=== PATIENT | male | born 1945 | race Two or more races ===

== ENCOUNTER 2022-10-05 15:00 | Inpatient (IN) | payer MEDICARE ==
[~2022-10-05] VITALS: Ht 182.9 cm; Wt 77.1 kg
--- NOTE | 2022-10-05 15:20 | NUR ---
NEIL, REQUESTS PSYCH EVAL TO BE ABLE TO TRANSFER TO SNF
--- NOTE | 2022-10-05 15:46 | NUR ---
covid swab taken
--- NOTE | 2022-10-05 15:46 | NUR ---
lab at bed side
[2022-10-05 15:55] LABS: BASOPHILS % (AUTO) 0.6 % (0.0-2.0); EOSINOPHILS % (AUTO) 2.2 % (0.0-6.0); HEMATOCRIT 45 % (39-51); HEMOGLOBIN 14.7 g/dL (13.5-17.5); LYMPHOCYTES # (AUTO) 2.2 K/uL (0.8-4.8); LYMPHOCYTES % (AUTO) 27.3 % (20.0-44.0); MEAN CORPUSCULAR HGB CONC 33 g/dl (31.0-36.0); MEAN CORPUSCULAR VOLUME 86 fL (80-96); MONOCYTES # (AUTO) 0.8 K/uL (0.1-1.30); MONOCYTES % (AUTO) 10.4 % (2.0-12.0); NEUTROPHILS # (AUTO) 4.7 K/uL (1.8-8.9); NEUTROPHILS % (AUTO) 59.5 % (43.0-81.0); PLATELET COUNT (AUTO) 196 K/uL (150-450); RED BLOOD CELL COUNT(AUTO) 5.15 MIL/uL (4.5-6.0)
[2022-10-05 16:10] LABS: CALCIUM, SERUM 8.7 mg/dL (8.5-10.1); CARBON DIOXIDE 30 mmol/L (21-32); CHLORIDE 103 mmol/L (98-107); CREATININE 0.8 mg/dL (0.6-1.3); GLUCOSE 122 mg/dL (74-106); SODIUM SERUM 139 mmol/L (136-145); UREA NITROGEN, BLOOD 12 mg/dL (7-18)
[2022-10-05 16:14] LABS: ALANINE AMINOTRANSFERASE 9 U/L (12-78); ALBUMIN 3.5 g/dL (3.4-5.0); ALKALINE PHOSPHATASE 99 U/L (46-116); ASPARTATE AMINOTRANSFERASE 9 U/L (15-37); BILIRUBIN,DIRECT 0.2 mg/dL (0.0-0.2); BILIRUBIN,TOTAL 0.4 mg/dL (0.2-1.0); TOTAL PROTEIN, SERUM 6.7 g/dL (6.4-8.2)
--- NOTE | 2022-10-05 16:23 | NUR ---
urine sample obtained
[2022-10-05 16:24] LABS: ALCOHOL, BLOOD < 3 mg/dL (0-0)
[2022-10-05] MEDS ORDERED: TAMS-12 PO (16:34)
[2022-10-05] MEDS ORDERED: MAGN400O6 PO (16:34)
[2022-10-05] MEDS ORDERED: DIVA-78 PO (16:34)
[2022-10-05] MEDS ORDERED: THIA100T70 PO (16:34)
[2022-10-05] MEDS ORDERED: QUET25TA PO (16:34)
[2022-10-05] MEDS ORDERED: CHOL400T11 PO (16:34)
[2022-10-05] MEDS ORDERED: METF-440 PO (16:34)
[2022-10-05] MEDS ORDERED: ACET325T53 PO (16:34)
[2022-10-05] MEDS ORDERED: QUET50TA PO ×2 (16:34)
[2022-10-05] MEDS ORDERED: ESCI20TA PO (16:34)
[2022-10-05] MEDS ORDERED: SIMV-49 PO (16:34)
[2022-10-05] MEDS ORDERED: DONE10TA44 PO (16:34)
--- NOTE | 2022-10-05 17:33 | NUR ---
MOVE SHEET SUBMITTED.
[2022-10-05 17:57] LABS: BILIRUBIN,URINE NEGATIVE (NEGATIVE); COLOR,URINE YELLOW (YELLOW); LEUKOCYTE ESTERASE ,URINE 1+ (NEGATIVE); NITRITE, URINE NEGATIVE (NEGATIVE); PROTEIN,URINE NEGATIVE (NEGATIVE); UGLUCOSE NEGATIVE (NEGATIVE)
--- NOTE | 2022-10-05 18:08 | NUR ---
CALLED [facility] [phone]
[2022-10-05 18:35] LABS: BACTERIA,URINE 1+ /HPF (None Seen); CALCIUM OXALATE CRYSTALS,UR Few /HPF (None Seen); MUCUS,URINE Few /LPF (None Seen); SQUAMOUS EPITHELIAL CELL,UR 0-2 /HPF (None Seen)
--- NOTE | 2022-10-05 19:17 | NUR ---
[facility] - 220 BED B
--- NOTE | 2022-10-05 21:27 | NUR ---
wheeled patient via gurney accompanied by EMT in no distress. RN assigned at bedside to assume care.
[2022-10-05 21:30] VITALS: BP 145/60
[2022-10-05] MEDS ORDERED: ACETAMINOPHEN 325 MG TABLET PO PRN (21:30)
[2022-10-05] MEDS ORDERED: MAGNESIUM HYDROXIDE 30 ML UDC PO PRN (21:30)
[2022-10-05] MEDS ORDERED: CEFTRIAXONE 1 G in IV D5W 50 ML IV SCH (21:30)
[2022-10-05] MEDS: METFORMIN 500 MG TABLET PO SCH ×2 (21:30→22:46)
[2022-10-05] MEDS ORDERED: MAG HYDROX/AL HYDROX/SIMETH 30 ML UDC PO PRN (21:30)
--- NOTE | 2022-10-05 21:30 | NUR ---
GPS ADMISSION NOTE, RECEIVED PATIENT FROM HOME / [facility] PATIENT ARRIVED ON THIS UNIT AT 2130 VIA STRETCHER WITH 2 [employer]. PATIENT ADMITTED ON A 5150 HOLD FOR DTO AND GD. PER HOLD PATIENT WAS BROUGHT IN TO [facility] BY HIS SON DUE TO THIS PATIENT HAVING INCREASED CONFUSION AND AGITATION. PATIENT HAS BEEN AGGRESSIVE TOWARDS FAMILY AND TRIED TO LEAVE THE HOME WHILE CONFUSED. PATIENT HAS NO VIABLE PLAN FOR SELF CARE AT THIS TIME. THE 5150 WAS REVIEWED AND THE DOCUMENTATION IN THE 5150 HOLD APPEARS TO REFLECT THE PRESENTATION OF THE PATIENT. UPON FACE TO FACE ASSESSMENT PATIENT IS NOTED TO BEING CONFUSED, DISHEVELED, DISORGANIZED, ANXIOUS, UNCOOPERATIVE, AND NEEDS REDIRECTION. PATIENT IS CURRENTLY LYING IN BED AWAKE, HAS NO S/S OR COMPLAINTS OF PAIN. PATIENT IS DISPLAYING NO S/S OF APPARENT DISTRESS. PATIENT BREATHING IS UNLABORED WITH EQUAL RISE AND FALL OF THE CHEST. PATIENT IS ALERT AND ORIENTATED X 1 ON ROOM AIR. PATIENT ASSISTED WITH TURING AND REPOSITIONING Q2HR AND PRN FOR COMFORT AND CIRCULATION. PATIENT HAS NO NEEDS AT THIS TIME. PATIENT DENIES SUICIDE IDEATIONS AND HOMICIDAL IDEATIONS AT THIS TIME. PATIENT REFUSED TO SIGNS ANY PAPER WORK AND THINKS THIS IS ALL A MISTAKE. PATIENT ADVISED OF HIS HOLD AND PATIENT RIGHTS BOOKLET GIVEN. PATIENT IS UNDER THE PSYCHIATRIC CARE OF DR. CASTRO AND THE MEDICAL CARE OF DR PAYAN. PATIENT BELONGINGS WERE INVENTORIED AND CHECKED FOR CONTRABAND. ALL CONTRABAND REMOVED AND STORED IN PATIENT HALLWAY LOCKER. PATIENT ADVANCED DIRECTIVES PREFERENCE, IMMUNIZATIONS QUESTIONER, NECESSARY PAPERWORK COMPLETED. PATIENT REFUSED SKIN ASSESSMENT. PATIENT ORIENTATED TO ROOM, FLOOR, AND STAFF WITH ALL QUESTIONS ANSWERED. PATIENT EDUCATED ON THE USE OF THE CALL SCHWARTZ. PATIENT BED SIDE RAILS ARE UP X 2 FOR SAFETY. PATIENT BED IS LOCKED, LOW AND I WILL CONTINUE TO MONITOR THIS PATIENT Q 15 MIN WITH THE HELP OF STAFF TO MAINTAIN SAFETY.
[2022-10-05] MEDS ORDERED: SIMVASTATIN 40 MG TABLET PO SCH (22:00)
[2022-10-05] MEDS: TAMSULOSIN 0.4 MG CAP.SR.24H PO SCH ×2 (22:00→22:46)
[2022-10-05] MEDS: DONEPEZIL 5 MG TABLET PO SCH ×2 (22:00→22:46)
[2022-10-05] MEDS ORDERED: BLOOD SUGAR DIAGNOSTIC 1 EACH STRIP IN ONE (22:30)
--- NOTE | 2022-10-05 22:30 | NUR ---
RN NOTES: ARICEPT 10MG HS NOT GIVEN PATIENT REFUSED, MEDICATION WASTED.
--- NOTE | 2022-10-05 22:59 | NUR ---
RN NOTES: PATIENT REFUSED MEDICATIONS
[2022-10-06] MEDS: DONEPEZIL 5 MG TABLET PO SCH ×3 (00:24→00:51)
[2022-10-06 08:00] VITALS: BP 150/75
[2022-10-06] MEDS: METFORMIN 500 MG TABLET PO SCH ×3 (09:00→17:18)
[2022-10-06] MEDS: CHOLECALCIFEROL (VITAMIN D 3) 400 UNIT TABLET PO SCH ×2 (09:00→09:42)
[2022-10-06] MEDS: NICOTINE PATCH (14MG) 14 MG PATCH.TD24 TD SCH ×2 (09:00→09:42)
[2022-10-06] MEDS: THIAMINE HCL 100 MG TABLET PO SCH ×2 (09:00→09:42)
[2022-10-06] MEDS: QUETIAPINE FUMARATE 25 MG TABLET PO SCH ×2 (13:00→14:45)
[2022-10-06] MEDS: DIVALPROEX SODIUM 125 MG CAP.SPRINK PO SCH ×2 (13:00→14:45)
[2022-10-06] MEDS: CEPHALEXIN MONOHYDRATE 250 MG CAPSULE PO SCH ×3 (13:03→23:05)
--- NOTE | 2022-10-06 14:30 | NUR ---
NURSE NOTE: PT REFUSED MEDS AT 1300. WANDERING HALLWAY, NOT ABLE TO REDIRECT. DR CASTRO NOTIFIED. PT'S SON CALLED AND SPOKE TO PT TO TAKE MEDS. WHEN OFFERED AGAIN PT TOOK PT MEDS. WILL CONT TO MONITOR
--- NOTE | 2022-10-06 15:30 | NUR ---
NURSE NOTE: PT CALM, SITTING IN HALLWAY AT THIS TIME. NO LONGER WANDERING IN HALLWAY. WILL CONT TO MONITOR.
[2022-10-06 16:00] VITALS: BP 148/78
[2022-10-06] MEDS: LORAZEPAM 0.5 MG TABLET PO PRN (17:18)
--- NOTE | 2022-10-06 17:18 | NUR ---
NURSE NOTE: PT ANXIOUS, AND AGITATED, WANDERING HALLWAY AT THIS TIME. UNABLE TO REDIRECT. ATIVAN PO ADMIN ORDERED. PT CHAGO WELL. WILL CONT TO MONITOR.
--- NOTE | 2022-10-06 18:00 | NUR ---
NURSE NOTE: PT CALM AT THIS TIME, IN BED. ATIVAN EFFECTIVE AT THIS TIME. WILL CONT TO MONITOR.
--- NOTE | 2022-10-06 20:00 | NUR ---
RN opening notes Pt is resting in bed comfortably. Pt is alert and orientedX1, anxious, disorganized and confused. On room air. no SOB. No S/s of distress noted. Vs is stable. Reality orientation provided and frequent directions. Meds compliant. snack is provided. Pt denies SI/HI at this time. Safety precaution is maintained all the time. Will continue to monitor safety and behavior Q 15 mins checks.
[2022-10-06 20:35] VITALS: BP 134/79
[2022-10-06] MEDS: SIMVASTATIN 20 MG TABLET PO SCH (21:35)
[2022-10-06] MEDS: TAMSULOSIN 0.4 MG CAP.SR.24H PO SCH (21:35)
[2022-10-07] MEDS: TEMAZEPAM 7.5 MG CAPSULE PO PRN (00:22)
[2022-10-07] MEDS: CEPHALEXIN MONOHYDRATE 250 MG CAPSULE PO SCH ×3 (06:14→17:07)
[2022-10-07 07:25] LABS: BASOPHILS % (AUTO) 0.3 % (0.0-2.0); EOSINOPHILS % (AUTO) 1.7 % (0.0-6.0); HEMATOCRIT 45 % (39-51); LYMPHOCYTES # (AUTO) 1.7 K/uL (0.8-4.8); LYMPHOCYTES % (AUTO) 19.5 % (20.0-44.0); MEAN CORPUSCULAR HGB CONC 34 g/dl (31.0-36.0); MEAN CORPUSCULAR VOLUME 87 fL (80-96); NEUTROPHILS # (AUTO) 5.9 K/uL (1.8-8.9); NEUTROPHILS % (AUTO) 67.5 % (43.0-81.0); PLATELET COUNT (AUTO) 207 K/uL (150-450); RED BLOOD CELL COUNT(AUTO) 5.15 MIL/uL (4.5-6.0); WHITE BLOOD COUNT (AUTO) 8.8 K/uL (4.3-11.0)
[2022-10-07 07:52] LABS: CALCIUM, SERUM 8.7 mg/dL (8.5-10.1); CREATININE 0.7 mg/dL (0.6-1.3); POTASSIUM 3.9 mmol/L (3.5-5.1)
[2022-10-07 08:00] VITALS: BP 148/85
[2022-10-07] MEDS: NICOTINE PATCH (14MG) 14 MG PATCH.TD24 TD SCH (08:57)
[2022-10-07] MEDS: CHOLECALCIFEROL (VITAMIN D 3) 400 UNIT TABLET PO SCH (08:57)
[2022-10-07] MEDS: THIAMINE HCL 100 MG TABLET PO SCH (08:57)
[2022-10-07] MEDS: METFORMIN 500 MG TABLET PO SCH ×2 (08:58→16:09)
[2022-10-07] MEDS: QUETIAPINE FUMARATE 25 MG TABLET PO SCH ×2 (08:58→16:09)
[2022-10-07] MEDS: DIVALPROEX SODIUM 125 MG CAP.SPRINK PO SCH ×2 (08:58→21:28)
--- NOTE | 2022-10-07 10:00 | NUR ---
[facility] Clinical Note: Pt placed on a 5150 hold for danger to others and GD. Per hold, pt was aggressive at home and was trying to elope from home. [place] [address], [place] [address]; ([phone]). Patient reported he lives at home. CHOLO will contact pt's son Oliverio ([phone]) to gather collateral and discuss treatment/discharge plan.
--- NOTE | 2022-10-07 10:00 | NUR ---
[facility]O Initial Discharge Note: Patient [place] home [place] at [address], [place] [address]; ([phone]). Patient reported he lives at home. CHOLO will contact pt's son Oliverio ([phone]) to gather collateral and discuss treatment/discharge plan. CHOLO will work with the family, pt, and MD to help coordinate appropriate discharge.
--- NOTE | 2022-10-07 10:01 | NUR ---
Treatment Plan: Pt refused to sign treatment plan and was very confused.
--- NOTE | 2022-10-07 10:31 | NUR ---
RN-CO: PATIENT DENIED PAIN AND DISCOMFORTS, HE IS ALERT TO NAME ONLY, HE IS UNKEMPT AND DISHEVELED. HE NEEDS MODERATE ASSISTANCE WITH ADL. HE WILL ONLY TAKE MEDICATIONS IF YOU TELL HIM THAT " ALEAH WANTS YOU TO TAKE IT." HE IS PARANOID AND GUARDED. I WILL CONTINUE TO ANTICIPATE HIS NEEDS.
--- NOTE | 2022-10-07 11:05 | NUR ---
CHOLO Family Contact: CHOLO contacted pt's son Oliverio ([phone]) who stated that he is the DPOA and will bring the documents to the unit. He expressed that pt was from [facility] but does not want him back and wants him to go to a SNF. Initially, his plan was for pt to be transferred to [facility] but he changed his mind and does not want [facility]. He stated that funds are running out for his father and wants a SNF. CHOLO stated she will give recommendations of SNF's. Son requested to speak to Dr. Baires. CHOLO notified doctor.
--- NOTE | 2022-10-07 11:28 | NUR ---
SW Family Contact: SW emailed pt's son Oliverio ([phone]) facility options: [facility] [place]- Fax [facility]) SNF [facility] ([place], [place]) [facility] bed secured prison facility [address] [place] [address] [phone] [facility] prison facility [address] [place] [address] [phone]
--- NOTE | 2022-10-07 14:47 | NUR ---
RN-CO: PATIENT IS WANDERING FROM ROOM TO ROOM, PEED ON HIS PANTS, CONFUSED. HE NEEDS FREQUENT REDIRECTIONS.
--- NOTE | 2022-10-07 14:58 | NUR ---
RN-CO: Patient was advised several times to use his walker for safety but he always ignores or doesn't retain information. Patient keeps on ambulating without using his walker.
[2022-10-07 16:00] VITALS: BP 153/86
[2022-10-07 20:38] VITALS: BP 151/70
[2022-10-07] MEDS: DONEPEZIL 5 MG TABLET PO SCH (21:32)
[2022-10-07] MEDS: TAMSULOSIN 0.4 MG CAP.SR.24H PO SCH (21:33)
[2022-10-07] MEDS: SIMVASTATIN 20 MG TABLET PO SCH (21:45)
[2022-10-08] MEDS: CEPHALEXIN MONOHYDRATE 250 MG CAPSULE PO SCH ×4 (00:07→17:13)
--- NOTE | 2022-10-08 01:03 | NUR ---
RN NOTE WHILE PROVIDING HYGIENE CARE, PATIENT VISIBLY NOTED WITH SACRAL, RIGHT AND LEFT BUTTOCK REDNESS, PATIENT IS NON COMPLAINT AND REFUSED TO TURN AND REMAIN STILL FOR PHOTO AND FULL BODY ASSESSMENT. PATIENT GOT ANXIOUS AND RESTLESS AND NURSE WAS UNABLE TO TAKE A PICTURE OF SACRUM, RIGHT AND LEFT BUTTOCK. PATIENT WAS UNABLE TO FOLLOW DIRECTIONS DUE TO CONFUSION. MD NOTIFIED, NEW ORDERS RECEIVED AND CARRIED OUT, WOUND CARE CONSULT AND Z GUARD ORDERED PER MD ORDER. WILL CONTINUE TO MONITOR.
[2022-10-08] MEDS: Z GUARD REMEDY 4 OZ OINT TP PRN (03:06)
[2022-10-08 08:00] VITALS: BP 148/73
[2022-10-08] MEDS: THIAMINE HCL 100 MG TABLET PO SCH (08:01)
[2022-10-08] MEDS: QUETIAPINE FUMARATE 25 MG TABLET PO SCH ×2 (08:01→16:29)
[2022-10-08] MEDS: NICOTINE PATCH (14MG) 14 MG PATCH.TD24 TD SCH (08:02)
[2022-10-08] MEDS: METFORMIN 500 MG TABLET PO SCH ×2 (08:02→16:29)
[2022-10-08] MEDS: CHOLECALCIFEROL (VITAMIN D 3) 400 UNIT TABLET PO SCH (08:02)
[2022-10-08] MEDS: Z GUARD REMEDY 4 OZ OINT TP SCH (08:03)
--- NOTE | 2022-10-08 08:37 | NUR ---
WOUND CARE CONSULT:UNABLE TO ASSESS PT'S SKIN DUE TO PT ADAMANT REFUSAL. PT PREVIOUSLY REFUSED PHOTO OF SACRAL/BUTTOCKS AREA. DISCUSSED SKIN PROTECTION WITH NURSING STAFF. WILL SEE PT PT CONDITION PERMITS.
[2022-10-08] MEDS: DIVALPROEX SODIUM 125 MG CAP.SPRINK PO SCH ×3 (11:21→16:29)
--- NOTE | 2022-10-08 13:40 | NUR ---
CHOLO Family Contact: CHOLO spoke with patient's son Oliverio ([phone]) who stated that he would want this brief writer to send clinicals to [facility]. SW will send clinicals when pt is stable.
[2022-10-08 16:00] VITALS: BP 123/73
[2022-10-08 20:15] VITALS: BP 137/68
[2022-10-08 21:37] VITALS: BP 101/68
[2022-10-08] MEDS: SIMVASTATIN 20 MG TABLET PO SCH (21:44)
[2022-10-08] MEDS: TAMSULOSIN 0.4 MG CAP.SR.24H PO SCH (21:44)
[2022-10-08] MEDS: DONEPEZIL 5 MG TABLET PO SCH (21:44)
--- NOTE | 2022-10-08 22:30 | NUR ---
RN NOTE PATIENT WAS ASSISTED WITH HYGIENE CARE, NOTED WITH UNCOOPERATIVE BEHAVIOR WHEN ATTEMPTED TO TAKE A SACRAL, RIGHT/LEFT BUTTOCK PICTURE. PATIENT GOT ANXIOUS AND RESTLESS AND WANTED TO SLEEP. PATIENT'S BEHAVIOR IS UNPREDICTABLE. RN MATERNAL CHILD WAS UNABLE TO TAKE A PICTURE OF SACRAL AREA BUT NOTED WITH REDNESS. WILL CONTINUE TO MONITOR FOR ANY CHANGES.
[2022-10-09] MEDS: CEPHALEXIN MONOHYDRATE 250 MG CAPSULE PO SCH ×4 (00:32→18:05)
[2022-10-09 08:00] VITALS: BP 137/73
[2022-10-09] MEDS: NICOTINE PATCH (14MG) 14 MG PATCH.TD24 TD SCH (08:31)
[2022-10-09] MEDS: DIVALPROEX SODIUM 125 MG CAP.SPRINK PO SCH ×3 (08:31→17:12)
[2022-10-09] MEDS: CHOLECALCIFEROL (VITAMIN D 3) 400 UNIT TABLET PO SCH (08:31)
[2022-10-09] MEDS: METFORMIN 500 MG TABLET PO SCH ×2 (08:32→17:11)
[2022-10-09] MEDS: QUETIAPINE FUMARATE 25 MG TABLET PO SCH ×2 (08:32→17:15)
[2022-10-09] MEDS: THIAMINE HCL 100 MG TABLET PO SCH (08:32)
[2022-10-09] MEDS: Z GUARD REMEDY 4 OZ OINT TP SCH (08:47)
--- NOTE | 2022-10-09 15:00 | NUR ---
RN-CO: PATIENT WAS REDIRECTED TO DINING ROOM BECAUSE HE KEEPS ON WAKING UP HIS ROOM MATE. HE IS EASILY IRRITATED JENIFFER WHEN REDIRECTED. HE GOES FROM ROOM TO ROOM DUE TO CONFUSION. WE WILL CONTINUE TO MONITOR AND ANTICIPATE HIS NEEDS.
[2022-10-09 16:00] VITALS: BP 117/86
[2022-10-09 19:59] VITALS: BP 104/68
[2022-10-09] MEDS: LORAZEPAM 0.5 MG TABLET PO PRN (20:01)
--- NOTE | 2022-10-09 20:05 | NUR ---
RN NOTE: ANXIETY/RESTLESSNESS PATIENT IS NOTED TO BE ANXIOUS, RESTLESS, AGITATED, UNCOOPERATIVE AND NON REDIRECTABLE AT THIS TIME. PRN ATIVAN 0.5 MG PO ADMINISTERED PER MD ORDER. WILL CONTINUE TO MONITOR THE PATIENT FOR ANY CHANGE OF CONDITION.
[2022-10-09] MEDS: TAMSULOSIN 0.4 MG CAP.SR.24H PO SCH (21:23)
[2022-10-09] MEDS: DONEPEZIL 5 MG TABLET PO SCH (21:24)
[2022-10-09] MEDS: SIMVASTATIN 20 MG TABLET PO SCH (22:04)
[2022-10-10] MEDS: CEPHALEXIN MONOHYDRATE 250 MG CAPSULE PO SCH ×3 (00:07→12:00)
--- NOTE | 2022-10-10 07:59 | NUR ---
SNF Referral: CHOLO sent clinicals to Martha al from [facility] for placement ([phone]) for placement. CHOLO sent H & P, progress notes, and medication list.
[2022-10-10 08:00] VITALS: BP 141/79
[2022-10-10] MEDS: METFORMIN 500 MG TABLET PO SCH ×2 (08:34→16:46)
[2022-10-10] MEDS: DIVALPROEX SODIUM 125 MG CAP.SPRINK PO SCH ×3 (08:35→16:46)
[2022-10-10] MEDS: QUETIAPINE FUMARATE 25 MG TABLET PO SCH ×2 (08:35→16:46)
[2022-10-10] MEDS: THIAMINE HCL 100 MG TABLET PO SCH (08:35)
[2022-10-10] MEDS: NICOTINE PATCH (14MG) 14 MG PATCH.TD24 TD SCH (08:35)
[2022-10-10] MEDS: CHOLECALCIFEROL (VITAMIN D 3) 400 UNIT TABLET PO SCH (08:36)
[2022-10-10] MEDS: Z GUARD REMEDY 4 OZ OINT TP SCH (08:50)
--- NOTE | 2022-10-10 11:05 | NUR ---
Court Hearing: Patient's 1210 hearing was today and it was upheld for GD.
--- NOTE | 2022-10-10 11:05 | NUR ---
Court Notification: SW attempted to contact pt's son Oliverio ([phone]) but number was not ringing.
[2022-10-10 16:00] VITALS: BP 142/58
[2022-10-10] MEDS: LEVOFLOXACIN (250MG) 250 MG TABLET PO SCH (16:01)
--- NOTE | 2022-10-10 18:26 | NUR ---
RN-NOTES PATIENT IN THE DAY ROOM UP IN THE CHEL CHAIR AWAKE,A/O X1,CALM,GUARDED,CONFUSED NEEDS DIRECTION AND INSTRUCTIONS,NO ACUTE DISTRESS NOTED. COMPLIANT WITH MEDICATIONS. NEED MODERATE ASSIST WITH ADL'S. ALL NEEDS ATTENDED AND ANTICIPATED. WILL CONT. MONITORING FOR SAFETY AND BEHAVIOR.
[2022-10-10 20:13] VITALS: BP 113/63
--- NOTE | 2022-10-10 20:27 | NUR ---
RN NOTES: PATIENT SITTING UP IN CHEL CHAIR AND WATCHING TV IN ACTIVITY ROOM, A/O X1 NO APPARENT DISTRESS NOTED, PATIENT UNCOOPERATIVE, CONFUSED FORGETFUL EASILY AGITATED/IRRITABLE, PARANOID GUARDER ,LABILE, DISORGNIZED, NONREDDIECTABLE,REFUSED TO GO BACK TO BED AT THIS TIME , HIGH FALL RISKS NEEDS FREQUENTLY REDIRECTIONS, SAFETY PRECAUTIONS MAINTAINED. WILL CONTINUE TO MONITOR Q15MIN ROUNDS FOR SAFETY AND BEHAVIOR.
[2022-10-10] MEDS: SIMVASTATIN 20 MG TABLET PO SCH (21:11)
[2022-10-10] MEDS: TAMSULOSIN 0.4 MG CAP.SR.24H PO SCH (21:11)
[2022-10-10] MEDS: DONEPEZIL 5 MG TABLET PO SCH (21:12)
[2022-10-10] MEDS: TEMAZEPAM 7.5 MG CAPSULE PO PRN (23:05)
--- NOTE | 2022-10-10 23:07 | NUR ---
RN NOTES: INSOMNIA PT. C/O UNABLE TO SLEEP , PRN RESTORIL 7.5 MG PO GIVEN PER PT. REQUEST, WILL CONTINUE TO MONITOR.
[2022-10-11 08:00] VITALS: BP_SYST 131; BP_SYST 146; BP_DIAS 73; BP_DIAS 79
[2022-10-11] MEDS: THIAMINE HCL 100 MG TABLET PO SCH (08:16)
[2022-10-11] MEDS: METFORMIN 500 MG TABLET PO SCH ×2 (08:16→16:31)
[2022-10-11] MEDS: DIVALPROEX SODIUM 125 MG CAP.SPRINK PO SCH ×3 (08:17→16:31)
[2022-10-11] MEDS: QUETIAPINE FUMARATE 25 MG TABLET PO SCH ×2 (08:17→16:31)
[2022-10-11] MEDS: CHOLECALCIFEROL (VITAMIN D 3) 400 UNIT TABLET PO SCH (08:17)
[2022-10-11] MEDS: NICOTINE PATCH (14MG) 14 MG PATCH.TD24 TD SCH (08:18)
[2022-10-11] MEDS: Z GUARD REMEDY 4 OZ OINT TP SCH (09:29)
[2022-10-11] MEDS: LEVOFLOXACIN (250MG) 250 MG TABLET PO SCH (15:34)
--- NOTE | 2022-10-11 15:48 | NUR ---
SNF Contact: SW contacted Martha al from [facility] for placement ([phone]) who stated that pt is accepted.
[2022-10-11 16:00] VITALS: BP 125/76
--- NOTE | 2022-10-11 19:30 | NUR ---
GPS RN NOTE, RECEIVED PATIENT AWAKE AND IN BED, NO S/S OR COMPLAINTS OF PAIN AT THIS TIME. PATIENT IS DISPLAYING NO S/S OF APPARENT DISTRESS AT THIS TIME. PATIENT BREATHING IS UNLABORED WITH EQUAL RISE AND FALL OF THE CHEST. PATIENT IS ALERT AND ORIENTED X 1 ON ROOM AIR WITH A SPO2 96%. PATIENT IS COMPLIANT WITH MEDICATIONS, CALM, CONFUSED, POLITE, AND COOPERATIVE. PATIENT DENIES SUICIDAL AND HOMICIDAL IDEATIONS AT THIS TIME. PATIENT ASSISTED WITH TURNING AND REPOSITIONING Q2HR AND PRN FOR COMFORT AND CIRCULATION. PATIENT HAS NO NEEDS AT THIS TIME. PATIENT EDUCATED ON THE USE OF THE CALL SCHWARTZ. PATIENT BED SIDE RAILS UP X 2 FOR SAFETY. PATIENT BED IS LOCKED AND LOW. WILL CONTINUE TO MONITOR THIS PATIENT Q15 MINUTES WITH THE HELP OF STAFF TO MAINTAIN SAFETY.
[2022-10-11] MEDS: TAMSULOSIN 0.4 MG CAP.SR.24H PO SCH (21:26)
[2022-10-11] MEDS: SIMVASTATIN 20 MG TABLET PO SCH (21:26)
[2022-10-11] MEDS: DONEPEZIL 5 MG TABLET PO SCH (21:26)
[2022-10-12 08:00] VITALS: BP 135/62
[2022-10-12] MEDS: QUETIAPINE FUMARATE 25 MG TABLET PO SCH ×2 (08:30→16:18)
[2022-10-12] MEDS: DIVALPROEX SODIUM 125 MG CAP.SPRINK PO SCH ×3 (08:30→16:17)
[2022-10-12] MEDS: CHOLECALCIFEROL (VITAMIN D 3) 400 UNIT TABLET PO SCH (08:30)
[2022-10-12] MEDS: METFORMIN 500 MG TABLET PO SCH ×2 (08:30→16:17)
[2022-10-12] MEDS: NICOTINE PATCH (14MG) 14 MG PATCH.TD24 TD SCH (08:30)
[2022-10-12] MEDS: THIAMINE HCL 100 MG TABLET PO SCH (08:30)
[2022-10-12] MEDS: Z GUARD REMEDY 4 OZ OINT TP SCH (08:32)
[2022-10-12] MEDS: LEVOFLOXACIN (250MG) 250 MG TABLET PO SCH (15:58)
[2022-10-12 16:00] VITALS: BP 131/61
--- NOTE | 2022-10-12 18:43 | NUR ---
RN-NOTES PATIENT IN THE DAY ROOM UP IN THE CHEL CHAIR AWAKE,A/O X1,CALM,COOPERATIVE WITH STAFF,GUARDED,CONFUSED NEEDS DIRECTION AND INSTRUCTIONS,NO ACUTE DISTRESS NOTED. COMPLIANT WITH MEDICATIONS. NEED MODERATE ASSIST WITH ADL'S. ALL NEEDS ATTENDED AND ANTICIPATED. WILL CONT. MONITORING FOR SAFETY AND BEHAVIOR.WILL ENDORSE TO INCOMING NURSE FOR THE CONTINUITY OF CARE.
--- NOTE | 2022-10-12 19:30 | NUR ---
GPS RN NOTE, RECEIVED PATIENT AWAKE AND IN BED, NO S/S OR COMPLAINTS OF PAIN AT THIS TIME. PATIENT IS DISPLAYING NO S/S OF APPARENT DISTRESS AT THIS TIME. PATIENT BREATHING IS UNLABORED WITH EQUAL RISE AND FALL OF THE CHEST. PATIENT IS ALERT AND ORIENTED X 1 ON ROOM AIR WITH A SPO2 98%. PATIENT IS COMPLIANT WITH MEDICATIONS, CALM, CONFUSED, POLITE, AND COOPERATIVE. PATIENT DENIES SUICIDAL AND HOMICIDAL IDEATIONS AT THIS TIME. PATIENT ASSISTED WITH TURNING AND REPOSITIONING Q2HR AND PRN FOR COMFORT AND CIRCULATION. PATIENT HAS NO NEEDS AT THIS TIME. PATIENT EDUCATED ON THE USE OF THE CALL SCHWARTZ. PATIENT BED SIDE RAILS UP X 2 FOR SAFETY. PATIENT BED IS LOCKED AND LOW. WILL CONTINUE TO MONITOR THIS PATIENT Q15 MINUTES WITH THE HELP OF STAFF TO MAINTAIN SAFETY.
[2022-10-12 20:00] VITALS: BP 122/79
[2022-10-12] MEDS: TEMAZEPAM 7.5 MG CAPSULE PO PRN (21:38)
[2022-10-12] MEDS: TAMSULOSIN 0.4 MG CAP.SR.24H PO SCH (21:38)
[2022-10-12] MEDS: DONEPEZIL 5 MG TABLET PO SCH (21:38)
[2022-10-12] MEDS: SIMVASTATIN 20 MG TABLET PO SCH (21:38)
--- NOTE | 2022-10-12 21:39 | NUR ---
GPS RN NOTE, PATIENT HAS A COMPLAINT OF NOT BEING ABLE TO SLEEP AND IS REQUESTING RESTORIL AT THIS TIME. PATIENT VITAL SIGNS ARE STABLE. GAVE RESTORIL 7.5MG PO HS PRN ORDERED. WILL REASSESS FOR INSOMNIA AND I WILL CONTINUE TO MONITOR THIS PATIENT WITH THE HELP OF STAFF.
[2022-10-13 08:00] VITALS: BP 135/84
[2022-10-13] MEDS: CHOLECALCIFEROL (VITAMIN D 3) 400 UNIT TABLET PO SCH (08:18)
[2022-10-13] MEDS: THIAMINE HCL 100 MG TABLET PO SCH (08:18)
[2022-10-13] MEDS: METFORMIN 500 MG TABLET PO SCH ×2 (08:18→17:35)
[2022-10-13] MEDS: QUETIAPINE FUMARATE 25 MG TABLET PO SCH ×2 (08:18→17:34)
[2022-10-13] MEDS: NICOTINE PATCH (14MG) 14 MG PATCH.TD24 TD SCH (08:19)
[2022-10-13] MEDS: Z GUARD REMEDY 4 OZ OINT TP SCH (08:19)
[2022-10-13] MEDS: DIVALPROEX SODIUM 125 MG CAP.SPRINK PO SCH ×3 (08:19→17:34)
[2022-10-13] MEDS: LORAZEPAM 0.5 MG TABLET PO PRN (11:30)
--- NOTE | 2022-10-13 11:30 | NUR ---
NURSE NOTE: PT AGITATED AT THIS TIME. BANGING ON TABLE. ATIVAN PO ADMINISTERED ORDERED. PT CHAGO WELL. WILL CONT TO MONITOR.
--- NOTE | 2022-10-13 12:30 | NUR ---
NURSE NOTE: PT CALM AT THIS TIME. ATIVAN EFFECTIVE AT THIS TIME. WILL CONT TO MONITOR.
--- NOTE | 2022-10-13 15:00 | NUR ---
RN-CO: PATIENT IS COMPLIANT WITH MEDICATIONS. CONFUSED AND DISORGANIZED. HE NEEDS CONSTANT REDIRECTIONS. GOES FROM ROOM TO ROOM WHEN HE IS WALKING. PT NEEDS MODERATE ASSISTANCE IN ADL.WE WILL CONTINUE TO MONITOR.
[2022-10-13] MEDS: LEVOFLOXACIN (250MG) 250 MG TABLET PO SCH (15:58)
[2022-10-13 16:00] VITALS: BP 139/65
[2022-10-13 20:34] VITALS: BP 139/78
[2022-10-13] MEDS: SIMVASTATIN 20 MG TABLET PO SCH (21:56)
[2022-10-13] MEDS: TAMSULOSIN 0.4 MG CAP.SR.24H PO SCH (21:57)
[2022-10-13] MEDS: DONEPEZIL 5 MG TABLET PO SCH (22:06)
[2022-10-14 08:00] VITALS: BP 134/62
[2022-10-14] MEDS: THIAMINE HCL 100 MG TABLET PO SCH (08:39)
[2022-10-14] MEDS: METFORMIN 500 MG TABLET PO SCH ×2 (08:39→16:59)
[2022-10-14] MEDS: NICOTINE PATCH (14MG) 14 MG PATCH.TD24 TD SCH (08:39)
[2022-10-14] MEDS: DIVALPROEX SODIUM 125 MG CAP.SPRINK PO SCH ×3 (08:39→16:59)
[2022-10-14] MEDS: QUETIAPINE FUMARATE 25 MG TABLET PO SCH ×2 (08:39→16:59)
[2022-10-14] MEDS: CHOLECALCIFEROL (VITAMIN D 3) 400 UNIT TABLET PO SCH (08:40)
[2022-10-14] MEDS: Z GUARD REMEDY 4 OZ OINT TP SCH (08:40)
[2022-10-14] MEDS: LEVOFLOXACIN (250MG) 250 MG TABLET PO SCH (14:47)
[2022-10-14 16:00] VITALS: BP 115/75
[2022-10-14 19:55] VITALS: BP 120/69
[2022-10-14] MEDS: DONEPEZIL 5 MG TABLET PO SCH (21:22)
[2022-10-14] MEDS: SIMVASTATIN 20 MG TABLET PO SCH (21:22)
[2022-10-14] MEDS: TAMSULOSIN 0.4 MG CAP.SR.24H PO SCH (21:22)
--- NOTE | 2022-10-15 07:00 | NUR ---
RN NOTE- PT BLUNTED AFFECT, MED COMPLIANT, QUIET WITHDRAWN. NO BEHAVIORAL ISSUES. MONITOR / ASSIST
[2022-10-15 08:00] VITALS: BP 105/74
[2022-10-15] MEDS: NICOTINE PATCH (14MG) 14 MG PATCH.TD24 TD SCH (08:52)
[2022-10-15] MEDS: Z GUARD REMEDY 4 OZ OINT TP SCH (08:53)
[2022-10-15] MEDS: THIAMINE HCL 100 MG TABLET PO SCH (08:53)
[2022-10-15] MEDS: QUETIAPINE FUMARATE 25 MG TABLET PO SCH ×3 (08:53→16:42)
[2022-10-15] MEDS: DIVALPROEX SODIUM 125 MG CAP.SPRINK PO SCH ×3 (08:53→16:42)
[2022-10-15] MEDS: METFORMIN 500 MG TABLET PO SCH ×2 (08:53→16:42)
[2022-10-15] MEDS: CHOLECALCIFEROL (VITAMIN D 3) 400 UNIT TABLET PO SCH (08:53)
[2022-10-15 12:24] LABS: BASOPHILS % (AUTO) 0.2 % (0.0-2.0); EOSINOPHILS % (AUTO) 1.4 % (0.0-6.0); HEMATOCRIT 51 % (39-51); HEMOGLOBIN 16.9 g/dL (13.5-17.5); LYMPHOCYTES # (AUTO) 1.5 K/uL (0.8-4.8); LYMPHOCYTES % (AUTO) 17.3 % (20.0-44.0); MEAN CORPUSCULAR HGB CONC 33 g/dl (31.0-36.0); MEAN CORPUSCULAR VOLUME 87 fL (80-96); MONOCYTES % (AUTO) 11.3 % (2.0-12.0); NEUTROPHILS # (AUTO) 6.2 K/uL (1.8-8.9); NEUTROPHILS % (AUTO) 69.8 % (43.0-81.0); PLATELET COUNT (AUTO) 212 K/uL (150-450); RED BLOOD CELL COUNT(AUTO) 5.85 MIL/uL (4.5-6.0); WHITE BLOOD COUNT (AUTO) 8.9 K/uL (4.3-11.0)
[2022-10-15 12:44] LABS: VALPROIC ACID 45 ug/mL (50-100)
[2022-10-15 12:48] LABS: ALANINE AMINOTRANSFERASE 15 U/L (12-78); ALBUMIN 3.8 g/dL (3.4-5.0); ALKALINE PHOSPHATASE 98 U/L (46-116); ASPARTATE AMINOTRANSFERASE 15 U/L (15-37); BILIRUBIN,TOTAL 0.6 mg/dL (0.2-1.0); CALCIUM, SERUM 9.4 mg/dL (8.5-10.1); CARBON DIOXIDE 31 mmol/L (21-32); CHLORIDE 104 mmol/L (98-107); GLUCOSE 180 mg/dL (74-106); POTASSIUM 4.1 mmol/L (3.5-5.1); SODIUM SERUM 142 mmol/L (136-145); TOTAL PROTEIN, SERUM 7.5 g/dL (6.4-8.2); UREA NITROGEN, BLOOD 18 mg/dL (7-18)
[2022-10-15 16:00] VITALS: BP 114/54
[2022-10-15 20:47] VITALS: BP 127/77
[2022-10-15] MEDS: DONEPEZIL 5 MG TABLET PO SCH (21:42)
[2022-10-15] MEDS: SIMVASTATIN 20 MG TABLET PO SCH (21:43)
[2022-10-15] MEDS: TAMSULOSIN 0.4 MG CAP.SR.24H PO SCH (21:43)
[2022-10-16 08:00] VITALS: BP 124/70
[2022-10-16] MEDS: CHOLECALCIFEROL (VITAMIN D 3) 400 UNIT TABLET PO SCH (09:00)
[2022-10-16] MEDS: Z GUARD REMEDY 4 OZ OINT TP SCH (09:00)
[2022-10-16] MEDS: LORAZEPAM 0.5 MG TABLET PO PRN (10:51)
[2022-10-16] MEDS: QUETIAPINE FUMARATE 25 MG TABLET PO SCH ×3 (10:51→17:02)
[2022-10-16] MEDS: METFORMIN 500 MG TABLET PO SCH ×2 (10:51→17:01)
[2022-10-16] MEDS: DIVALPROEX SODIUM 125 MG CAP.SPRINK PO SCH ×2 (10:51→17:01)
[2022-10-16] MEDS: THIAMINE HCL 100 MG TABLET PO SCH (10:51)
[2022-10-16] MEDS: NICOTINE PATCH (14MG) 14 MG PATCH.TD24 TD SCH (10:53)
[2022-10-16 16:00] VITALS: BP 128/71
--- NOTE | 2022-10-16 20:00 | NUR ---
Patient is stable, and very nice. However, he is very confused; but he is stable. No behavior issues observe.
[2022-10-16 20:36] VITALS: BP 128/76
[2022-10-16] MEDS: TAMSULOSIN 0.4 MG CAP.SR.24H PO SCH (21:36)
[2022-10-16] MEDS: SIMVASTATIN 20 MG TABLET PO SCH (21:36)
[2022-10-16] MEDS: DONEPEZIL 5 MG TABLET PO SCH (21:36)
[2022-10-17 08:00] VITALS: BP 153/70
[2022-10-17] MEDS: NICOTINE PATCH (14MG) 14 MG PATCH.TD24 TD SCH (09:17)
[2022-10-17] MEDS: CHOLECALCIFEROL (VITAMIN D 3) 400 UNIT TABLET PO SCH (09:17)
[2022-10-17] MEDS: THIAMINE HCL 100 MG TABLET PO SCH (09:17)
[2022-10-17] MEDS: QUETIAPINE FUMARATE 25 MG TABLET PO SCH ×3 (09:17→17:05)
[2022-10-17] MEDS: DIVALPROEX SODIUM 125 MG CAP.SPRINK PO SCH ×2 (09:17→17:05)
[2022-10-17] MEDS: METFORMIN 500 MG TABLET PO SCH ×2 (09:17→17:05)
[2022-10-17] MEDS: Z GUARD REMEDY 4 OZ OINT TP SCH (09:25)
--- NOTE | 2022-10-17 10:00 | NUR ---
RN Notes: Received pt. asleep in bed, breathing is even and unlabored. Ate 25% for breakfast and compliant on meds. Pt. is confused and disoriented. Pt. was reoriented to person, place, day, date and situation. Morning care rendered and needs attended and will continue to monitor for safety.
[2022-10-17 16:00] VITALS: BP 139/75
--- NOTE | 2022-10-17 19:46 | NUR ---
RN NOTES: RECEIVED PATIENT SITTING IN A CHEL CHAIR, A & O X 1, CONFUSED, DISORGANIZED, FLAT AFFECT, DISHEVELED, ANXIOUS, PARANOID,UNCOOPERATIVE AT TIMES BUT REDIRECTABLE AT THIS TIME, EASILY AGITATED. PT.NEEDS FREQUENT REDIRECTION. HAS NO S/S OR C/O PAIN. NO S/S OF APPARENT DISTRESS. BREATHING IS UNLABORED WITH EQUAL RISE AND FALL OF THE CHEST. ON ROOM AIR. PATIENT DENIES SUICIDE IDEATIONS AND HOMICIDAL IDEATIONS AT THIS TIME SAFETY PRECAUTIONS MAINTAINED, WILL CONTINUE TO MONITOR THIS PATIENT Q 15 MIN WITH THE HELP OF STAFF TO MAINTAIN SAFETY.
[2022-10-17 21:05] VITALS: BP 115/73
[2022-10-17] MEDS: SIMVASTATIN 20 MG TABLET PO SCH (21:31)
[2022-10-17] MEDS: TAMSULOSIN 0.4 MG CAP.SR.24H PO SCH (21:31)
[2022-10-17] MEDS: DONEPEZIL 5 MG TABLET PO SCH (21:32)
[2022-10-18 08:00] VITALS: BP 122/67
--- NOTE | 2022-10-18 08:09 | NUR ---
SW Discharge Note: Patient will be discharged to a locked alf facility to [facility] [address] [place] [address]; ([phone]). Please arrange ambulance transportation. Trust Manager spoke with Demetrice, Actuarial Technician at [facility]; ([phone]), who stated patient will be accepted at facility today. Patient is alert and oriented x1, and is not able to plan for self-care at this time, but is willing to accept care provided for her at the facility. Patient denies any suicidal or homicidal ideations. Patients lio Duron ([phone]) is aware and agreeable with dc. Patient will continue to follow-up with (psychiatrist) Dr. Baires [address], [place] [address]; ([phone]) and (Professor Computer Science) Dr. Paulino [address], [place] [address]; ([phone]). Patient presents with euthymic mood and congruent affect.
[2022-10-18] MEDS: CHOLECALCIFEROL (VITAMIN D 3) 400 UNIT TABLET PO SCH (08:38)
[2022-10-18] MEDS: QUETIAPINE FUMARATE 25 MG TABLET PO SCH ×2 (08:38→12:36)
[2022-10-18] MEDS: METFORMIN 500 MG TABLET PO SCH (08:38)
[2022-10-18] MEDS: THIAMINE HCL 100 MG TABLET PO SCH (08:38)
[2022-10-18] MEDS: NICOTINE PATCH (14MG) 14 MG PATCH.TD24 TD SCH (08:38)
[2022-10-18] MEDS: DIVALPROEX SODIUM 125 MG CAP.SPRINK PO SCH (08:38)
[2022-10-18] MEDS: Z GUARD REMEDY 4 OZ OINT TP SCH (08:39)
[2022-10-18] MEDS: Z GUARD REMEDY 4 OZ OINT TP PRN (08:39)
--- NOTE | 2022-10-18 08:54 | NUR ---
Dr. Baires gave and order to D/C hold and D/C to [facility] and to follow up with psych and medical doctors. Psychiatrist ordered to continue same meds including prn.
--- NOTE | 2022-10-18 10:39 | NUR ---
Eugene GOMES made aware of the discharge and ordered to continue same meds including prn.
--- NOTE | 2022-10-18 13:30 | NUR ---
GPS/RN PT D/C TO [facility]. REPORT GIVEN TO DEVANG VOGT NO SI /HI AT THE TIME OF D/C. VSS. EXIT CARE INSTRUCTIONS AND MED. LIST PROVIDED. PT REFUSED TO SIGN AND TO LET RN TO TAKE PICTURES. PROPERTY RETURNED. PT LEFT VIA AMBULANCE
[2022-10-18] MEDS ORDERED: QUETIAPINE FUMARATE 25 MG TABLET PO SCH (22:00)
[2022-10-19] MEDS ORDERED: GLUCERNA SHAKE 237 ML CAN PO SCH (09:00)
== END 2022-10-18 13:30 | DRG 885 ==
LOC: ER 15:08 → GPS 19:46
PROVIDERS: ADMIT Psychiatry & Neurology Psychosomatic Medicine; ATTEND Nurse Practitioner Acute Care
DX: F31.9 Bipolar disorder, unspecified (principal); G93.41 Metabolic encephalopathy; N39.0 Urinary tract infection, site not specified; F03.92 Unspecified dementia, unspecified severity, with psychotic disturbance; F03.93 Unspecified dementia, unspecified severity, with mood disturbance; F29 Unspecified psychosis not due to a substance or known physiological condition; E11.9 Type 2 diabetes mellitus without complications; Z85.51 Personal history of malignant neoplasm of bladder; E78.5 Hyperlipidemia, unspecified; Z91.013 Allergy to seafood; B96.89 Other specified bacterial agents as the cause of diseases classified elsewhere; I10 Essential (primary) hypertension
CPT/HCPCS: 36415; 80048-TC; 80053-TC; 80061-TC; 80076-TC; 80164-TC; 81001; 82962-TC; 85025-TC; 87081-TC; 87086-TC; 97112-TC; 97116-TC; 97530-TC; C9803; G0480; J0696; J7060